=== PATIENT | female | born 2000 | race Caucasian/White ===

== ENCOUNTER 2024-07-26 17:51 | Emergency (ER) | payer BC, SELFPAY ==
--- NOTE | ~2024-07-26 | CT_ITS ---
CTA chest PE abdomen pel Ordering provider: Jazmyn Kent APRN History: . shortness of breath, chest pain . Comparison: None. Technique: CT angiogram chest was performed following timed intravenous injection of contrast. Thin s lice axial images and reformatted coronal images were obtained. Three dimensional reformatted images of the chest were also obtained using a [employer] workstation. Also, CT of the abdomen and pelvis was pe rformed with IV contrast. . Automated exposure control and iterative reconstruction technique were e mployed. The dose-length product was 396.06 mGy-cm. 100 mL Omnipaque 350 was given IV. FINDINGS: CHEST: --PULMONARY ARTERIES: No pulmonary embolus. --VISUALIZED THORACIC INLET: Normal. --MEDIASTINUM: Aorta/coronary arteries: The thoracic aorta is normal. Heart/other: The heart is not enlarged. Lymph nodes: No mediastinal or hilar adenopathy. Soft tissue density anterior to the aorta which is most likely residual thymus. --LUNGS: No pulmonary nodules or masses. No infiltrates or effusions. No pneumothorax. --MUSCULOSKELETAL: Bones: Normal spine. Bifid spinous process of T11 and T12. Superficial soft tissues: The superficial soft tissues are normal. ABDOMEN/PELVIS: --MUSCULOSKELETAL: Superficial soft tissues: The superficial soft tissues are normal. Bones: Normal spine. --UPPER ABDOMINAL ORGANS: Liver: Normal. Gallbladder: Contracted. Spleen: Normal. Stomach/duodenum: Normal. Pancreas: Normal. Adrenals: Normal. Kidneys: Normal. --PELVIC ORGANS: The bladder is normal. No bladder stones. --BOWEL AND MESENTERY: Colon: No evidence of diverticulitis. Fecal material seen in the colon Normal appendix. Small Bowel: Normal. No obstruction. Peritoneum/mesentery: No free air or free fluid. No mesenteric lymphadenopathy. --RETROPERITONEUM: Normal aorta. No retroperitoneal lymphadenopathy. IMPRESSION: CHEST: 1. No acute cardiopulmonary pathology. 2. No pulmonary embolism. ABDOMEN/PELVIS: 1. No acute abdominal process. 2. Constipation. Reviewed, dictated and finalized at location A.
[2024-07-26 18:02] VITALS: BP 123/86; PULSE 94; RESP 16; TEMP 36.7; O2SAT 100
--- NOTE | 2024-07-26 18:29 | ECG_ITS ---
Test Date: 2024-07-26 18:41:17 Measurements Intervals [place] Rate: 62 P: 66 TN: 188 QRS: 13 QRSD: 84 T: 39 QT: 361 QTc: 368 Interpretive Statements SINUS RHYTHM No previous ECG available for comparison Electronically Signed On 07-26-2024 19:18:13 CDT by Thierry Smyth
--- NOTE | 2024-07-26 18:32 | ED_ITS ---
HPI - Abdominal Pain General Chief Complaint: Abdominal Pain <Jazmyn Kent APRN - Last Filed: 07/26/24 19:10> Stated Complaint: LUQ pain-nausea <Jazmyn Kent APRN - Last Filed: 07/26/24 19:10> Time Seen by Provider: 07/26/24 18:16 <Jazmyn Kent APRN - Last Filed: 07/26/24 19:10> History of Present Illness HPI narrative: Patient is a 23-year-old female who presents to the ER with complaints of left upper quadrant abdominal pain that started abruptly around 11:00 a.m. this morning. She describes the pain as stabbing. Patient reports she noticed increased gassiness and burping so she took some Tums which provided her mild temporary relief. She also endorses L chest pain, bilateral acute back pain and shortness of breath. Patient reports she has a history of peptic ulcer disease and signs/symptoms of Leticia-Danlos versus hypermobility. She reports she was on control for many years but stopped taking it in April because she and her significant other are trying to get . Patient also endorses vaping, but reports ?I am trying to quit. She denies any recent fevers, urinary symptoms, cough or sore throat. <Jazmyn Kent APRN - Last Filed: 07/26/24 19:10> Related Data Allergies/Adverse Reactions: Allergies Allergy/AdvReac Type Severity Reaction Status Date / Time No Known Allergies Allergy Verified 07/26/24 18:35 <Jazmyn Kent APRN - Last Filed: 07/26/24 19:10> Review of Systems 2 Review of Systems: All systems reviewed & are unremarkable except as noted in HPI and below <Jazmyn Kent APRN - Last Filed: 07/26/24 19:10> Exam 2 Narrative: GENERAL: Well appearing, well-nourished, non-toxic, in mild distress d/t pain. HEAD: Normocephalic, atraumatic. NECK: Supple. No adenopathy, no masses. RESPIRATORY: Airway patent, respirations nonlabored. Clear to auscultation bilaterally, no rales, rhonchi, wheezing. CARDIOVASCULAR: Regular rate and rhythm without murmurs, rubs, or gallops. Peripheral pulses 2+ and equal bilaterally. ABDOMINAL: Soft, tenderness with palpation, nondistended, no hepatosplenomegaly. Normoactive BS. Negative Laguna's sign, Negative Psoas sign. Exceptional tenderness in LUQ. MUSCULOSKELETAL: Moves all extremities. Strength/ROM intact without gross deformities. SKIN: Warm, dry, normal color. No rashes. NEURO: A&O X3. Speech clear. Cranial nerves II-XII intact. No ataxic movements. PSYCHIATRIC: Appropriate mood and affect. Normal interaction. <Jazmyn Kent, PATIENT REGISTRATION CLERK - Last Filed: 07/26/24 19:10> Course Vital Signs Vital signs: Vital Signs Temperature 98.0 F 07/26/24 18:02 Pulse Rate 94 07/26/24 18:02 Respiratory Rate 16 07/26/24 18:02 Blood Pressure 123/86 07/26/24 18:02 Pulse Oximetry 100 07/26/24 18:02 Oxygen Delivery Room Air 07/26/24 18:02 Temperature 98.0 F 07/26/24 18:02 Pulse Rate 84 07/26/24 18:33 Respiratory Rate 15 07/26/24 18:33 Blood Pressure 113/83 07/26/24 18:33 Pulse Oximetry 97 07/26/24 18:33 Oxygen Delivery Room Air 07/26/24 18:02 <Jazmyn Kent, PATIENT REGISTRATION CLERK - Last Filed: 07/26/24 19:10> Vital Signs Temperature 98.0 F 07/26/24 18:02 Pulse Rate 94 07/26/24 18:02 Respiratory Rate 16 07/26/24 18:02 Blood Pressure 123/86 07/26/24 18:02 Pulse Oximetry 100 07/26/24 18:02 Oxygen Delivery Room Air 07/26/24 18:02 Temperature 98.0 F 07/26/24 18:02 Pulse Rate 84 07/26/24 18:33 Respiratory Rate 15 07/26/24 18:33 Blood Pressure 113/83 07/26/24 18:33 Pulse Oximetry 97 07/26/24 18:33 Oxygen Delivery Room Air 07/26/24 18:02 <Dariana Muhammad PA-C - Last Filed: 07/26/24 20:30> MDM - Abdominal Pain MDM Narrative Medical decision making narrative: Patient is a 23-year-old female who presents to the ER with complaints of left upper quadrant abdominal pain that started abruptly around 11:00 a.m. this morning. She describes the pain as stabbing. Patient reports she noticed increased gassiness and burping so she took some Tums which provided her mild temporary relief. She also endorses L chest pain, bilateral acute back pain and shortness of breath. Patient reports she has a history of peptic ulcer disease and signs/symptoms of Leticia-Danlos versus hypermobility. She reports she was on control for many years but stopped taking it in April because she and her significant other are trying to get . Patient also endorses vaping, but reports ?I am trying to quit. She denies any recent fevers, urinary symptoms, cough or sore throat. Labs Ordered: CBC, CMP, TSH, troponin, lipase, UA, UDS, INR, PTT Imaging Ordered: CT PE chest abdomen pelvis Medications Ordered: GI cocktail, 1L NS IV bolus 1900- Pt reports the GI cocktail did not help relieve her symptoms. 1899- Care signed out to Dariana Muhammad PA-C. <Jazmyn Kent, PATIENT REGISTRATION CLERK - Last Filed: 07/26/24 19:10> Patient is a 23-year-old female who presents to the ER with complaints of left upper quadrant abdominal pain that started abruptly around 11:00 a.m. this morning. She describes the pain as stabbing. Patient reports she noticed increased gassiness and burping so she took some Tums which provided her mild temporary relief. She also endorses L chest pain, bilateral acute back pain and shortness of breath. Patient reports she has a history of peptic ulcer disease and signs/symptoms of Leticia-Danlos versus hypermobility. She reports she was on control for many years but stopped taking it in April because she and her significant other are trying to get . Patient also endorses vaping, but reports ?I am trying to quit. She denies any recent fevers, urinary symptoms, cough or sore throat. Labs Ordered: CBC, CMP, TSH, troponin, lipase, UA, UDS, INR, PTT Imaging Ordered: CT PE chest abdomen pelvis Medications Ordered: GI cocktail, 1L NS IV bolus 1900- Pt reports the GI cocktail did not help relieve her symptoms. 1899- Care signed out to Dariana Muhammad PA-C. Care signed out to myself pending CTA chest PE with abdomen pelvis. CT chest shows no acute cardiopulmonary pathology and no PE. CT abdomen pelvis shows no acute abdominal process, there is findings concerning for constipation. Remainder of workup is unremarkable with normal leukocytosis, no anemia. Chemistries are unremarkable. UA without UTI, is negative. EKG shows normal sinus rhythm with rate of 62 ppm, normal FL interval, normal QRS duration, normal QTC, no ischemic changes. Troponin is undetectable. Patient re-evaluated and resting comfortably in exam bed. She did report improvement after IV Toradol. Abdomen is now soft and nontender. Will start her on bowel regimen with stool softeners and MiraLax in addition to prescribing omeprazole given reported prior history of ulcers (however she states she has not had an EGD). Will provide GI follow-up and discussed strict ED return precautions. She is agreeable with the plan verbalized understanding. Discharged in stable condition. <Dariana Muhammad PA-C - Last Filed: 07/26/24 20:30> Differential Diagnosis Differential diagnosis: Likely abdominal pain, calculus of kidney, diverticulitis, gastroenteritis, pancreatitis and small bowel obstruction <Jazmyn Kent APRN - Last Filed: 07/26/24 19:10> Lab Data Result diagrams: 07/26/24 18:34 07/26/24 18:34 <Jazmyn Kent APRN - Last Filed: 07/26/24 19:10> Labs: Lab Results 07/26/24 07/26/24 Range/Units 18:33 18:34 WBC 5.7 (4.5-10.0) K/mm3 RBC 4.13 L (4.2-5.4) M/mm3 Hgb 12.8 (12.0-15.0) g/dL Hct 37.3 (37.0-47.0) % MCV 90.3 (80-100) fl MCH 31.0 (26-34) pg MCHC 34.3 (32-36) g/dl RDW 11.6 (11.5-14.5) % Plt Count 281 (150-375) k/mm3 MPV 8.9 (7.4-10.4) fl Immature Gran % (Auto) 0.2 (0-0.5) % Neut % (Auto) 51.6 (45.5-73.1) % Lymph % (Auto) 39.6 (18.3-44.2) % Fisher % (Auto) 7.2 (2.6-8.5) % Eos % (Auto) 0.7 (0-4.4) % Baso % (Auto) 0.7 (0.2-1.2) % Lymph # (Auto) 2.26 (0.9-3.2) K/mm3 Fisher # (Auto) 0.4 (0.1-0.6) K/mm3 Eos # (Auto) 0.0 (0-0.3) K/mm3 Baso # (Auto) 0.0 (0.0-0.1) K/mm3 Abs Immat Gran (auto) 0.01 (0.00-0.031) K/mm3 Absolute Neuts (auto) 3.0 (1.3-6.7) K/mm3 Absolute Nucleated RBC 0.000 (0.0-0.012) K/mm3 Nucleated RBC % 0.0 (0.0-0.2) % PT 13.5 (11.1-14.7) Seconds INR 1.0 APTT 28.9 (22.3-36.8) Seconds Sodium 137 (137-145) mmol/L Potassium 3.8 (3.4-5.0) mmol/L Chloride 100 (98-107) mmol/L Carbon Dioxide 31 H (22-30) mmol/L Anion Gap 6 (4-12) mmol/L BUN 14 (7-17) mg/dL Creatinine 0.72 (0.7-1.0) mg/dL Estim Creat Clear Calc 106 ml/min Estimated GFR > 60 (59 - ) Glucose 102 (65-110) mg/dL Calcium 9.0 (8.4-10.2) mg/dL Total Bilirubin 0.2 (0.2-1.3) mg/dL AST 26 (14-36) U/L ALT 20 (6-35) U/L Alkaline Phosphatase 56 (38-126) U/L Troponin I < 0.012 (0.000-0.034) ng/mL Total Protein 7.0 (6.3-8.2) g/dL Albumin 4.2 (3.5-5.1) g/dL Lipase 77 (23-300) U/L TSH (Reflex) 2.060 (0.465-4.68) uIU/mL Urine Color Yellow (Yellow) Urine Appearance Clear (Clear) Urine pH 8.5 (5.0-9.0) Ur Specific [place] 1.013 (1.001-1.035) Urine Protein Negative (Negative) mg/dL Urine Glucose (UA) Negative (Negative) mg/dL Urine Ketones Negative (Negative) mg/dL Ur Blood (Man) Negative (Negative) Urine Nitrate Negative (Negative) Urine Bilirubin Negative (Negative) Urine Urobilinogen 0.2 (<2.0) mg/dL Leukocyte Esterase Rfl Negative (Negative) FEDER[place]/UL POC Urine HCG, Qual Negative (Negative) Urine Opiates Screen Negative (Negative) Urine Methadone Screen Negative (Negative) Ur Barbiturates Screen Negative (Negative) Ur Phencyclidine Scrn Negative (Negative) Ur Amphetamine Screen Negative (Negative) U Benzodiazepines Scrn Negative (Negative) Urine Cocaine Screen Negative (Negative) U Cannabinoids Screen Negative (Negative) <Jazmyn Kent, PATIENT REGISTRATION CLERK - Last Filed: 07/26/24 19:10> Lab Results 07/26/24 07/26/24 Range/Units 18:33 18:34 WBC 5.7 (4.5-10.0) K/mm3 RBC 4.13 L (4.2-5.4) M/mm3 Hgb 12.8 (12.0-15.0) g/dL Hct 37.3 (37.0-47.0) % MCV 90.3 (80-100) fl MCH 31.0 (26-34) pg MCHC 34.3 (32-36) g/dl RDW 11.6 (11.5-14.5) % Plt Count 281 (150-375) k/mm3 MPV 8.9 (7.4-10.4) fl Immature Gran % (Auto) 0.2 (0-0.5) % Neut % (Auto) 51.6 (45.5-73.1) % Lymph % (Auto) 39.6 (18.3-44.2) % Fisher % (Auto) 7.2 (2.6-8.5) % Eos % (Auto) 0.7 (0-4.4) % Baso % (Auto) 0.7 (0.2-1.2) % Lymph # (Auto) 2.26 (0.9-3.2) K/mm3 Fisher # (Auto) 0.4 (0.1-0.6) K/mm3 Eos # (Auto) 0.0 (0-0.3) K/mm3 Baso # (Auto) 0.0 (0.0-0.1) K/mm3 Abs Immat Gran (auto) 0.01 (0.00-0.031) K/mm3 Absolute Neuts (auto) 3.0 (1.3-6.7) K/mm3 Absolute Nucleated RBC 0.000 (0.0-0.012) K/mm3 Nucleated RBC % 0.0 (0.0-0.2) % PT 13.5 (11.1-14.7) Seconds INR 1.0 APTT 28.9 (22.3-36.8) Seconds Sodium 137 (137-145) mmol/L Potassium 3.8 (3.4-5.0) mmol/L Chloride 100 (98-107) mmol/L Carbon Dioxide 31 H (22-30) mmol/L Anion Gap 6 (4-12) mmol/L BUN 14 (7-17) mg/dL Creatinine 0.72 (0.7-1.0) mg/dL Estim Creat Clear Calc 106 ml/min Estimated GFR > 60 (59 - ) Glucose 102 (65-110) mg/dL Calcium 9.0 (8.4-10.2) mg/dL Total Bilirubin 0.2 (0.2-1.3) mg/dL AST 26 (14-36) U/L ALT 20 (6-35) U/L Alkaline Phosphatase 56 (38-126) U/L Troponin I < 0.012 (0.000-0.034) ng/mL Total Protein 7.0 (6.3-8.2) g/dL Albumin 4.2 (3.5-5.1) g/dL Lipase 77 (23-300) U/L TSH (Reflex) 2.060 (0.465-4.68) uIU/mL Urine Color Yellow (Yellow) Urine Appearance Clear (Clear) Urine pH 8.5 (5.0-9.0) Ur Specific [place] 1.013 (1.001-1.035) Urine Protein Negative (Negative) mg/dL Urine Glucose (UA) Negative (Negative) mg/dL Urine Ketones Negative (Negative) mg/dL Ur Blood (Man) Negative (Negative) Urine Nitrate Negative (Negative) Urine Bilirubin Negative (Negative) Urine Urobilinogen 0.2 (<2.0) mg/dL Leukocyte Esterase Rfl Negative (Negative) FEDER[place]/UL POC Urine HCG, Qual Negative (Negative) Urine Opiates Screen Negative (Negative) Urine Methadone Screen Negative (Negative) Ur Barbiturates Screen Negative (Negative) Ur Phencyclidine Scrn Negative (Negative) Ur Amphetamine Screen Negative (Negative) U Benzodiazepines Scrn Negative (Negative) Urine Cocaine Screen Negative (Negative) U Cannabinoids Screen Negative (Negative) <ELSA Lane Last Filed: 07/26/24 20:30> Imaging Data Radiologist's impression: ITS Impressions Chest/Abdomen/Pelvis CTA 07/26/24 19:38 IMPRESSION: CHEST: 1. No acute cardiopulmonary pathology. 2. No pulmonary embolism. ABDOMEN/PELVIS: 1. No acute abdominal process. 2. Constipation. <ROBERT España Last Filed: 07/26/24 19:10> ITS Impressions Chest/Abdomen/Pelvis CTA 07/26/24 19:38 IMPRESSION: CHEST: 1. No acute cardiopulmonary pathology. 2. No pulmonary embolism. ABDOMEN/PELVIS: 1. No acute abdominal process. 2. Constipation. <ELSA Lane Last Filed: 07/26/24 20:30> Discharge Plan Discharge Clinical Impression: Abdominal pain, LUQ, Atypical chest pain Constipation Qualifiers: Constipation type: unspecified constipation type Qualified Code(s): K59.00 - Constipation, unspecified <ROBERT España Last Filed: 07/26/24 19:10> Patient Disposition: Home <ROBERT España Last Filed: 07/26/24 19:10> Condition: Stable <aJzmyn Kent APRN - Last Filed: 07/26/24 19:10> Instructions: Antibiotic Form, Constipation (DC), Diet for Stomach Ulcers and Gastritis (ED), Abdominal Pain (ED) <Jazmyn Kent APRN - Last Filed: 07/26/24 19:10> Additional Instructions: Your evaluated in the emergency department for abdominal pain. Your workup here is reassuring but does show constipation. Her symptoms secondary to constipation versus inflammation of your stomach lining verses stomach ulcers and other. Please take the medication omeprazole as directed to help with symptoms of gastritis and possible stomach ulcer. Follow-up with the GI physician referred you to. Also take the stool softeners and MiraLax as directed. Return to the emergency department if you develop dark tarry stools, blood in your vomit, fever 100.4 or greater, worsening pain or other concerning symptoms. <Jazmyn Kent APRN - Last Filed: 07/26/24 19:10> Patient Language: Uruguayan <Jazmyn Kent APRN - Last Filed: 07/26/24 19:10> Prescriptions: New omeprazole 20 mg capsule,delayed release(DR/EC) 20 mg PO DAILY Qty: 30 0RF docusate sodium 100 mg capsule 100 mg PO BID Qty: 60 0RF polyethylene glycol 3350 17 gram/dose powder 17 g PO DAILY Qty: 119 0RF <Jazmyn Kent APRN - Last Filed: 07/26/24 19:10> Follow-up/Referrals: PHYSICIAN,LAUNCH ENGINEER [Primary Care Provider] - Norman Kong MD [Physician] - <Jazmyn Kent APRN - Last Filed: 07/26/24 19:10>
[2024-07-26 18:33] VITALS: BP 113/83; PULSE 84; RESP 15; O2SAT 97
[2024-07-26 18:38] LABS: BEDSIDEPREGUCG Negative (Negative)
[2024-07-26 18:42] LABS: Basophils Percent Auto 0.7 % (0.2-1.2); Eosinophils Percent Auto 0.7 % (0-4.4); Hematocrit 37.3 % (37.0-47.0); Hemoglobin 12.8 g/dL (12.0-15.0); Immature Granulocyte Absolute 0.01 K/mm3 (0.00-0.031); Immature Granulocyte Percent A 0.2 % (0-0.5); Lymphocytes Absolute Auto 2.26 K/mm3 (0.9-3.2); Lymphocytes Percent Auto 39.6 % (18.3-44.2); Mean Corpuscular HGB Conc 34.3 g/dl (32-36); Mean Corpuscular Volume 90.3 fl (80-100); Mean Platelet Volume 8.9 fl (7.4-10.4); Monocytes Absolute Auto 0.4 K/mm3 (0.1-0.6); Monocytes Percent Auto 7.2 % (2.6-8.5); Neutrophils Percent Auto 51.6 % (45.5-73.1); Platelet Count Result 281 k/mm3 (150-375); Red Blood Count 4.13 M/mm3 (4.2-5.4); Red Cell Distribution Width 11.6 % (11.5-14.5); White Blood Count 5.7 K/mm3 (4.5-10.0)
[2024-07-26 18:44] LABS: Add Urine Microscopic? NO; Appearance Urine Clear (Clear); Bilirubin Urine Negative (Negative); Blood Urine Negative (Negative); Color Urine Yellow (Yellow); Glucose Urine UA Negative (Negative); Ketones Urine Negative (Negative); Leukocyte Esterase Ur Negative LEU/UL (Negative); Nitrate Urine Negative (Negative); Protein Urine Negative (Negative); Specific Grav Ur 1.013 (1.001-1.035); Urobilinogen Urine 0.2 mg/dL (<2.0); pH Urine 8.5 (5.0-9.0)
[2024-07-26] MEDS: SODIUM CHLORIDE 0.9% IV 1,000 ML 999 ML IV CONT (18:44)
[2024-07-26] MEDS: BELLADONNA ALK/PHENOB ELIX 10 ML, MAG HYDROX/ALUMINUM HYD/SIMETH 30 ML, LIDOCAINE 2% VI... PO (18:46)
[2024-07-26 18:53] LABS: Alanine Aminotransferase 20 U/L (6-35); Albumin Level 4.2 g/dL (3.5-5.1); Alkaline Phosphatase 56 U/L (38-126); Anion Gap 6 mmol/L (4-12); Aspartate Amino Transferase 26 U/L (14-36); Bilirubin,Total 0.2 mg/dL (0.2-1.3); Blood Urea Nitrogen 14 mg/dL (7-17); Carbon Dioxide 31 mmol/L (22-30); Chloride 100 mmol/L (98-107); Estimated CRCL calculation 106 ml/min; Estimated Glomerular Filt Rate > 60; Glucose 102 mg/dL (65-110); Lipase 77 U/L (23-300); Potassium 3.8 mmol/L (3.4-5.0); Sodium 137 mmol/L (137-145)
[2024-07-26 18:54] LABS: Prothrombin Time 13.5 Seconds (11.1-14.7)
[2024-07-26 18:55] LABS: Partial Thromboplastin Time 28.9 Seconds (22.3-36.8)
[2024-07-26 19:00] LABS: Amphetamine Screen Urine Negative (Negative); Barbiturate Screen Urine Negative (Negative); Benzodiazepines Screen Urine Negative (Negative); Cannabinoid Screen Urine Negative (Negative); Cocaine Screen Urine Negative (Negative); Methadone Screen Urine Negative (Negative); Opiate Screen Urine Negative (Negative); Phencyclidine Screen Urine Negative (Negative)
[2024-07-26 19:05] LABS: Troponin I < 0.012 ng/mL (0.000-0.034)
[2024-07-26] MEDS: KETOROLAC 15 MG/ML VIAL (*BKC) IV PUSH (19:57)
[2024-07-26 20:56] VITALS: BP 108/68; PULSE 77; RESP 15; O2SAT 100
--- OUTSIDE RECORDS SUMMARY | 2024-07-27 15:03 | XMS_ITS | Clinical Summary ---
Author Organization [facility] Address [address] [place] [address] Care Team Providers Care Fruit Cutter Name Role Phone Alex Maverick Cheatham DO Primary Care Provider [phone] Allergies Active Allergy Reactions Criticality Noted Date Comments Avocado Hives Medium 06/15/2017 Banana Hives Medium 06/15/2017 Other Sneezing Low 07/22/2020 seasonal Medications cetirizine (ZyrTEC) 10 mg tablet Take 10 mg by mouth daily Active fluticasone propionate (FLONASE) 50 mcg/actuation nasal spray Administer 1 spray into affected nostril(s) 2 (two) times a day 8 Active Vyvanse 50 mg capsule Taking every other day 1 Active naproxen (ANAPROX,ALEVE) 275 mg tablet 1 Active Active Problems No known active problems Surgical History Surgery Date Site/Laterality Comments TOE SURGERY In grown toe nail HYMENECTOMY Medical History Medical History Date Comments Asthma Allergies Social History Tobacco Use Types Packs/Day Years Used Date Smoking Tobacco: Never Smokeless Tobacco: Never Personal Safety Answer Date Recorded Getting School Help Needed Not on file 05/27 Comments Unknown Sex and Gender Information Value Date Recorded Sex Assigned at Not on file 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 Gender Identity Not on file Sexual Orientation Not on file Obstetrics History Last Filed Vital Signs Vital Sign Reading Time Taken Comments Blood Pressure 120/66 07/22/2020 4:15 PM CDT Pulse 104 07/22/2020 4:15 PM CDT Temperature 36.6 C (97.9 F) 07/22/2020 4:15 PM CDT Respiratory Rate 22 07/22/2020 4:15 PM CDT Oxygen Saturation 98% 05/01/2015 11: 21 PM GUEST SERVICES ATTENDANT Inhaled Oxygen Concentration - - Weight 67.1 kg (147 lb 14.9 oz) 07/22/2020 4:15 PM CDT Height 176.7 cm (5' 9.57 ) 07/22/2020 4:15 PM CD T Body Mass Index 21.49 07/22/2020 4:15 PM CDT Plan of Treatment Not on file Insurance Care Teams Fruit Cutter Relationship Specialty Start Date End Date Maverick Johnson DO [address] [place] [address] PCP - General Family Medicine 07/22/20
--- OUTSIDE RECORDS SUMMARY | 2024-07-27 15:03 | XMS_ITS | Referral Summary ---
Author Organization [facility] Address [address] [place] [address] Care Team Providers Care Bench Scientist Name Role Phone Malindalyle aMverick Cheatham DO Primary Care Provider [phone] Allergies Active Allergy Reactions Criticality Noted Date [...] Active Active Problems No known active problems Social History Tobacco Use Types Packs/Day Years Used Date Smoking Tobacco: Never Smokeless Tobacco: Never Personal Safety Answer Date Recorded Getting School Help Needed Not on file 05/27 Comments Unknown Sex and Gender Information Value Date Recorded Sex Assigned at Not on file 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 Gender Identity Not on file Sexual Orientation Not on file Last Filed Vital Signs Vital Sign Reading Time Taken Comments Blood Pressure 120/66 07/22/2020 4:15 PM CDT Pulse 104 07/22/2020 4:15 PM CDT Temperature 36.6 C (97.9 F) 07/22/2020 4:15 PM CDT Respiratory Rate 22 07/22/2020 4:15 PM CDT Oxygen Saturation 98% 05/01/2015 11: 21 PM NON GARMENT SEWING MACHINE OPERATOR Inhaled Oxygen Concentration - - Weight 67.1 kg (147 lb 14.9 oz) 07/22/2020 4:15 PM CDT Height 176.7 cm (5' 9.57 ) 07/22/2020 4:15 PM CD T Body Mass Index 21.49 07/22/2020 4:15 PM CDT Plan of Treatment Not on file Insurance Care Teams Bench Scientist Relationship Specialty Start Date End Date Maverick Johnson DO [address] [place] [address] PCP - General Family Medicine 07/22/20
--- OUTSIDE RECORDS SUMMARY | 2024-07-27 15:04 | XMS_ITS | Data Portability ---
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 11/29/2023 17:56:51 Mid-cycle bleeding [id number] N92.0 --Discusse d the various causes of abnormal uterine bleeding. Including: polyps, fibroids, hyperplasi a, atypia, anovulatio n, etc.-- Discussed that diet, exercise, stress, weight gain/loss can also cause abnormal uterine bleeding. If AUB has been present for <3 months pt will continue to monitor and RTC for full work up if this continues. --Reviewed the typical evaluation with labs and TVUS if AUB has lasted >3 months.--D iscussed the possibilit y of endometria l biopsy. Biopsy procedure reviewed in detail.--R ecommended NSAID to help with cramping/b leeding.-- Briefly discussed the options available for treatment (depending on the results of evaluation ) such as hormonal treatment (OCPs, progestins ), Mirena, endometria l ablation, and surgery. Family [facility] education [id number] Z30.09 Extensive education given. Lesa lechuga thirty minutes spent with patient in consultati on (>50% face-to-fa ce). Patient labs and notes were reviewed. Patient questions were answered. Additional patient care was coordinate d. [id number] [facility] [address] [place] [address] 04/18/2024 09:55:10 04/18/2024 11:54:53 Gynecologic examination [id number] Z01.419 Patient is an establishe d patient who presents for a gynecologi rowan Annual Exam. The patient denies any changes in her medical history. The patient denies any changes in her family medical history. 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 Menses lasts for 3 or 4 days. Reports they are not heavy or painful. Denies spotting in between.Pt is currently using OCP for contracept ion. She is satisfied with her current method, refills sent.Repor ts her and her will likely start TTC within the next year. She had 2 days of missed pills and unprotecte d sex, will get Quant. Pap History:Tatum alvarenga is due for a pap smear. Breast History:Tatum alvarenga denies breast symptoms. Education on Breast Self Awareness given. Patient is regularly seen by PCP for preventati ve care: Yes Screening for malignant neoplasm of cervix [id number] Z12.4 Contracept ion education [id number] Z30.09 Contracept conner counseling : Discussed options including OCPs, NuvaRing, Nexplanon, hormonal and copper IUDs. Discussed risks, efficacy, noncontrac eptive benefits, and side effects of each option, including risk of VTE with hormonal contracept ion and uterine perforatio n, expulsion, infection with IUD. Depression screening 171 600338 Z13.31 See PHQ-9 Screening Uses oral contraception [id number] Z30.41 Unprotecte d sexual intercourse [id number] Z72.51 Health Concerns Section Related Observation LastModified by Organization Detai ls LastModified Time None Recorded Concern Status LastModified by Organization Details LastModified Time None Recorded Advance Directives Directive None Recorded Payers Encounter Date Sequence Insurance Name Policy Number Policy Harris Covered Member ID Harris Member ID Guarantor Name 12/29/2021 1 FOR LIFE () Mary Escobar [id number] Mary Escobar 03/21/2023 1 FOR LIFE () Mary Escobar [id number] Mary Escobar 04/07/2023 1 [facility] () Mary Escobar [id number] Mary Escobar 11/29/2023 1 [place] [id number] 1 Mary Escobar [id number] Mary Escobar 04/18/2024 1 [place] [id number] 1 Mary Escobar [id number] Mary Escobar Notes Date Note Type Note Provider Name and Address Organization Details Recorded Time 12/29/2021 text/html Annual GYNReport ed bypatient.Menstrua l cycle:Normal menses Urinary symptoms:No hematuria; No incontinence Vulva:No genital lesion Vagina:Normal vaginal discharge Breast:No breast pain; No breast lump; No nipple discharge Sexual complaints:No sexual complaints; No pain during intercourse; Normal libido Menopausal Symptoms:No menopausal symptoms; Normal vaginal lubrication Psychological symptoms:No depression; No anxiety; No PMDD Esperanza Ramon, [facility] [address] [place], [address], [facility] [employer] 12/29/2021 16:25:02 03/21/2023 text/html Pt states she is doing well. Pt reports having issues with her cycles, States last 2 cycles have been more painful and heavier than normal. Pt is not currently using for contraception. Pt denies any difficulty remembering dosing schedule. Pt declines STD screening via culture and serum testing. Pt has no other concerns. PERRI ASTORGA, CONTINUOUS IMPROVEMENT ENGINEER [facility] [place], [address], [facility] [employer] 03/21/2023 20:18:15 04/07/2023 text/html Mary here tod ay to follow up on pelvic pain and painful cycles.States that Naproxen has helped.US completed today had painful periods before and treated with Jeanine with good response. was stopped previously due to figuring out meds for mental health. MARY GABRIEL, [address] [place], [address], [facility] [employer] 04/07/2023 10:08:54 11/29/2023 text/html Mary is here to discuss cycle. She states she has been on jeanine BC 9 months straight for this year and since last month she had a period that lasted for 2 weeks. Her periods are usually normal. She did have a little spotting today when she wiped. She also will like to start family planning soon. NICO PATTON, [facility]ANK-[facility] [address] [place], [address], [facility] [employer] 11/29/2023 17:25:44 04/18/2024 text/html Annual GYNReport ed bypatient.Menstrua l cycle:Normal menses Urinary symptoms:No hematuria; No incontinence Vulva:No genital lesion Vagina:Normal vaginal discharge Breast:No breast pain; No breast lump; No nipple discharge Sexual complaints:No sexual complaints; No pain during intercourse; Normal libido Menopausal Symptoms:No menopausal symptoms; Normal vaginal lubrication Psychological symptoms:No depression; No anxiety; No PMDD Mary is here for an annual exam. Pt LMP was 03-30-2024. Her last pap was 01/15. Pt uses bcp's for contraceptive. Her PHQ9 score is 13. Pt states she ran out of her bcp's and that caused her to start spotting again. She states she went two days without the pills. NICO PATTON, FRANK- [address] [facility], [place], [address], [facility] IV 04/18/2024 10:27:19 OBGyn Episode No OBEpisode recorded.
--- OUTSIDE RECORDS SUMMARY | 2024-07-27 15:04 | XMS_ITS | Clinical Summary ---
Author Organization [facility] Address [facility] [place] [address] Care Team Providers Care Branch Service Leader Name Role Phone None, Provider MD Primary Care Provider Unavaila ble Allergies Active Allergy Reactions Criticality Noted Date Comments [place] (Diagnostic) Hives 06/15/2017 Avocado Hives 06/15/2017 Banana Hives 06/15/2017 Medications cetirizine 10 MG tablet Take 10 mg by mouth daily. Active Drospirenone-Et hinyl Estradiol (FADIA OR) Active VYVANSE 50 MG capsule Take 50 mg by mouth every other day. 1 Active lidocaine 5 % ointment Apply 1 each topically as needed. 1 Active meloxicam 7.5 MG tablet Take 7.5 mg by mouth daily as needed. 1 Active albuterol sulfate HFA 108 (90 Base) MCG/ACT inhaler Inhale 2 puffs into the lungs every 6 (six) hours as needed for Wheezing. 18 g 1 Active Family History Medical History Relation Comments Hypertension Father Relation Status Comments Father Social History Tobacco Use Types Packs/Day Years Used Date Smoking Tobacco: Never Smokeless Tobacco: Never Tobacco Cessation:Counseling Given: Not Answered Alcohol Use Standard Drinks/Week Comments Yes 0 (1 standard drink = 0.6 oz pur e alcohol) Comments No Sex and Gender Information Value Date Recorded Sex Assigned at Not on file Legal Sex Female 7:54 PM CDT Gender Identity Not on file Sexual Orientation Not on file Last Filed Vital Signs Vital Sign Reading Time Taken Comments Blood Pressure 126/93 01/31/2023 7:42 PM ADVANCED MANUFACTURING TECHNICIAN Pulse 93 01/31/2023 7:42 PM ADVANCED MANUFACTURING TECHNICIAN Temperature 36.7 C (98 F) 01/31/2023 5:04 PM ADVANCED MANUFACTURING TECHNICIAN Respiratory Rate 16 01/31/2023 7:42 PM ADVANCED MANUFACTURING TECHNICIAN Oxygen Saturation 100% 01/31/2023 7:42 PM ADVANCED MANUFACTURING TECHNICIAN Inhaled Oxygen Concentration - - Weight 70.3 kg (155 lb) 01/31/2023 5:04 PM ADVANCED MANUFACTURING TECHNICIAN Height 177.8 cm (5' 10 ) 01/31/2023 5:04 PM ADVANCED MANUFACTURING TECHNICIAN Body Mass Index 22.24 01/31/2023 5:04 PM ADVANCED MANUFACTURING TECHNICIAN Plan of Treatment Health Maintenance Due Date Last Done Comments Cervical Cancer Screening Pap Smear (Age 21 to 29) Every 3 Years 1999 Cervical Cancer Screening 1999 Annual Physical 10/19/2002 HPV Vaccines (1 - 3-dose series) 10/19/2014 Hepatitis C 10/19/2017 DTaP, Tdap and Td Vaccines (7 - Td or Tdap) 09/05/2021 09/06/2011, 10/23/2003, 04/05/2001, Additional history exists COVID-19 Vaccine ( season) 2023 Hepatitis B Vaccines Completed 04/05/2001, 02/29/2000, 1999 Pneumococcal Vaccine: Pediatrics (0 to 5 Years) and At-Risk Patients (6 to 49 Years) Aged Out 04/05/2001, 10/23/2000, 04/24/2000 No longer eligible based on patient's age to complete this topic Meningococcal Vaccine Completed 10/18/2016, 012 Meningococcal B Vaccine Aged Out No l onger eligible based on patient's age to complete this topic RSV Immunizations Under 20 Months Aged Out No longer eligible based on patient's age to complete this topic Insurance Care Teams Branch Service Leader Relationship Specialty Start Date End Date None, Provider, PCP - General 03/01/19
== END 2024-07-26 20:57 | disposition home or self-care (01) ==
PROVIDERS: Emergency Medicine; Emergency Provider Registered Nurse
DX: K59.00 Constipation, unspecified (principal); R07.89 Other chest pain; R10.12 Left upper quadrant pain; F17.290 Nicotine dependence, other tobacco product, uncomplicated; Z87.11 Personal history of peptic ulcer disease
CPT/HCPCS: 36415; 71275; 74177; 80053; 80307; 81003; 81025; 83690; 84443; 84484; 85025; 85610; 85730; 93005; 96361; 96374; 99284; A9270; J1885; J7030; Q9967